=== PATIENT | male | born 1950 | race Caucasian/White ===

== ENCOUNTER 2016-05-31 06:58 | Day surgery (SDC) | payer OTHER ==
[~2016-05-31] VITALS: Ht 175.3 cm; Wt 79.5 kg
[2016-05-31] VITALS (9 sets, daily range): BP systolic 123–187; BP diastolic 64–97; PULSE 60–79; RESP 18–20; TEMP 98–98.2; O2SAT 91–97
[2016-05-31] MEDS ORDERED: LISI10TA3 PO (07:23)
[2016-05-31] MEDS ORDERED: METO25TA3 PO (07:23)
[2016-05-31] MEDS ORDERED: TRAZ100T4 PO (07:23)
[2016-05-31] MEDS ORDERED: LIDOCAINE 1%/EPINEPHrine 1:100,000 SOLN 20 ML VIAL ONE (07:25)
[2016-05-31] MEDS ORDERED: MIDAZOLAM HCL 5 MG/5 ML VIAL ONE (07:29)
[2016-05-31] MEDS ORDERED: fentaNYL CITRATE 250 MCG/5 ML AMP ONE (07:29)
[2016-05-31 07:51] LABS: AUTOMATED NEUTROPHIL # 3.3 TH/MM3 (1.8-7.7); BASOPHIL # 0.1 TH/MM3 (0-0.2); BASOPHIL % 0.9 % (0.0-2.0); EOSINOPHIL # 0.2 TH/MM3 (0-0.4); EOSINOPHIL % 3.9 % (0.0-4.0); HEMATOCRIT 43.9 % (39.0-51.0); HEMO FLAGS DIFF FINAL; LYMPH % 29.3 % (9.0-44.0); LYMPHOCYTE # 1.7 TH/MM3 (1.0-4.8); MEAN CELL VOLUME 92.9 FL (80.0-100.0); MEAN CORPUSCULAR HEMOGLOBIN 32.1 PG (27.0-34.0); MEAN CORPUSCULAR HGB CONC 34.5 % (32.0-36.0); MONO % 10.3 % (0.0-8.0); NEUT % 55.6 % (16.0-70.0); PLATELET COUNT 169 TH/MM3 (150-450); RED BLOOD COUNT 4.72 MIL/MM3 (4.50-5.90); RED CELL DISTRIBUTION WIDTH 12.8 % (11.6-17.2); WHITE BLOOD COUNT 5.9 TH/MM3 (4.0-11.0)
[2016-05-31 08:06] LABS: APTT (PATIENT) 27.6 SEC (24.3-30.1); INTERNATIONAL NORMALIZED RATIO 0.9 RATIO; PROTHROMBIN TIME - PATIENT 10.1 SEC (9.8-11.6)
[2016-05-31] MEDS ORDERED: THROMBIN (TOPICAL) 5,000 UNIT VIAL ONE (08:21)
[2016-05-31] MEDS ORDERED: SODIUM CHLOR 0.9% 1000 ML IV SCH (09:00)
[2016-05-31] MEDS ORDERED: GELATIN 12 MM/7 MM FOAM ONE (09:05)
[2016-05-31 09:33] LABS: AUTOMATED NEUTROPHIL # 2.7 TH/MM3 (1.8-7.7); BASOPHIL % 0.6 % (0.0-2.0); EOSINOPHIL # 0.1 TH/MM3 (0-0.4); EOSINOPHIL % 2.9 % (0.0-4.0); HEMATOCRIT 41.7 % (39.0-51.0); HEMO FLAGS DIFF FINAL; LYMPH % 31.9 % (9.0-44.0); LYMPHOCYTE # 1.6 TH/MM3 (1.0-4.8); MEAN CORPUSCULAR HEMOGLOBIN 32.9 PG (27.0-34.0); MEAN CORPUSCULAR HGB CONC 35.4 % (32.0-36.0); MONO % 9.8 % (0.0-8.0); NEUT % 54.8 % (16.0-70.0); PLATELET COUNT 130 TH/MM3 (150-450); RED BLOOD COUNT 4.49 MIL/MM3 (4.50-5.90); RED CELL DISTRIBUTION WIDTH 13.1 % (11.6-17.2)
--- NOTE | 2016-05-31 10:03 | RADRPT ---
EXAM DATE/TIME: 05/31/2016 08:22 [facility] COMPARISON: No previous studies available for comparison. INDICATIONS : Right renal mass. SEDATION TIME: 30 minutes BIOPSY SITE: Right renal MEDICATION(S): 1.) 2.5 mg midazolam (Versed) IV 2.) 100 mcg fentanyl (Sublimaze) SQL DEVELOPER(s): Minerva Arellano RN DEVICE(S): 1.) 18 gauge Bell blunt needle 2.) 20 gauge Temno core biopsy needle MEDICAL HISTORY : None. SURGICAL HISTORY : None. ENCOUNTER: Initial ACUITY: 1 day PAIN SCORE: 0/10 LOCATION: Right renal. A total of two core specimen(s) were obtained and sent to the laboratory for pathologic evaluation. PROCEDURE: 1. CT guided renal biopsy. 2. Conscious sedation with continuous EKG and oximetry monitoring. 3. EKG and oximetry remained stable throughout the procedure. Prior to the procedure informed consent was obtained. Any appropriate prior imaging studies were rev iewed. Using automated exposure control and adjustment of the mA and/or kV according to patient size, radiat ion dose was kept as low as reasonably achievable to obtain optimal diagnostic quality images. The site was prepped in a sterile fashion. Full sterile technique was used, including cap, mask, azeem rile gloves and gown and a large sterile sheet. Hand hygiene and 2% chlorhexidine and/or betadine/al cohol prep was utilized per protocol for cutaneous antisepsis. The skin and subcutaneous tissues wer e infiltrated with local anesthetic solution. Under CT guidance an 18 gauge blunt needle was placed down to the upper pole mass on the right. 3 co res were obtained. Tract and tumor was embolized with Gelfoam and thrombin. Follow-up CT scan reveals no hemorrhage. The patient tolerated the procedure well and there were no complications. The patient was returned to the Radiology Outpatient Unit in stable condition. CONCLUSION: Uncomplicated CT guided biopsy. Preliminary pathology interpretation is a cellular specimen. Jignesh Castillo MD FACR on May 31, 2016 at 10:01 Board Certified Radiologist. This report was verified electronically.
[2016-05-31 11:24] LABS: AUTOMATED NEUTROPHIL # 4.1 TH/MM3 (1.8-7.7); BASOPHIL % 0.5 % (0.0-2.0); EOSINOPHIL # 0.1 TH/MM3 (0-0.4); EOSINOPHIL % 1.8 % (0.0-4.0); HEMATOCRIT 41.6 % (39.0-51.0); HEMO FLAGS DIFF FINAL; LYMPH % 22.2 % (9.0-44.0); LYMPHOCYTE # 1.4 TH/MM3 (1.0-4.8); MEAN CELL VOLUME 93.1 FL (80.0-100.0); MEAN CORPUSCULAR HEMOGLOBIN 31.9 PG (27.0-34.0); MEAN CORPUSCULAR HGB CONC 34.2 % (32.0-36.0); MONO % 8.3 % (0.0-8.0); NEUT % 67.2 % (16.0-70.0); PLATELET COUNT 134 TH/MM3 (150-450); RED BLOOD COUNT 4.46 MIL/MM3 (4.50-5.90); RED CELL DISTRIBUTION WIDTH 13.1 % (11.6-17.2); WHITE BLOOD COUNT 6.2 TH/MM3 (4.0-11.0)
== END 2016-05-31 14:35 | disposition home or self-care (01) ==
LOC: HRAD 06:58 → HRIP 07:01 → HRAD 14:35
PROVIDERS: ATTEND Urology
DX: C64.9 Malignant neoplasm of unspecified kidney, except renal pelvis (principal)
CPT/HCPCS: 50200; 77012; 85025; 85610; 85730; 88305; 88333; J2250; J3010; J7030

== ENCOUNTER → 2016-08-30 | Outpatient (CLI) | payer OTHER ==
[~2016-08-30] MED LIST: LISI10TA3 PO; METO25TA3 PO; TRAZ100T4 PO
--- NOTE | 2016-09-01 09:11 | RADRPT ---
EXAM DATE/TIME: 08/30/2016 11:45 CONSULTATION: Patient has been kindly referred for evaluation of possible cryoablation of a right renal mass. CT ex amination from [facility] is reviewed, dated 04/09/2016. This demonstrates a 3.1 x 2.4 cm solid renal mass in the anterior mid pole of the right kidney without evidence for perinephric ext ension or renal vein invasion. No evidence for extrarenal metastatic disease. The R.E.N.A.L. nephrect madelyn designation is 7 (R1,E2, N2, L2). The anterior aspect of the mass abuts the liver capsule. Technically, although moderately challenging, this mass is amenable to thermal ablation. We will arrsri chavez for formal interventional radiology consult. Thank you for this consultation. David Sawyer MD on September 01, 2016 at 8:59 Board Certified Radiologist. This report was verified electronically.
== END ==
LOC: HRAD 10:55
PROVIDERS: ATTEND Urology
DX: N28.89 Other specified disorders of kidney and ureter (principal)

== ENCOUNTER 2016-09-22 12:53 | Day surgery (SDC) | payer OTHER ==
[2016-09-22 13:15] VITALS: BP 163/88; PULSE 73; RESP 20; TEMP 98.7; O2SAT 95
[2016-09-22] MEDS ORDERED: TRAZ100T6 PO (13:38)
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
== END 2016-09-22 13:40 | disposition home or self-care (01) ==
LOC: HROP 12:53 → HRIP 12:58 → HROP 13:40
PROVIDERS: ATTEND Urology
DX: C64.1 Malignant neoplasm of right kidney, except renal pelvis (principal); I10 Essential (primary) hypertension
CPT/HCPCS: 99213; G0463

== ENCOUNTER 2016-09-23 08:43 | Day surgery (SDC) | payer OTHER ==
[~2016-09-23] VITALS: Ht 175.3 cm; Wt 79.5 kg
[~2016-09-23 08:43] MED LIST changes: -TRAZ100T4 PO; +TRAZ100T6 PO
[2016-09-23 08:59] VITALS: BP 154/92; PULSE 71; RESP 20; TEMP 97.8; O2SAT 96
[2016-09-23] MEDS ORDERED: SODIUM CHLOR 0.9% 1000 ML INJ 1,000 ML IV SCH (09:00)
[2016-09-23] MEDS ORDERED: SODIUM CHLORID 0.9% 500 ML IV PRN (09:15)
[2016-09-23] MEDS ORDERED: LEVOFLOXACIN 500 MG PREMIX INJ 100 ML IV SCH (09:15)
[2016-09-23] MEDS ORDERED: INSULIN HUMAN REGULAR 1,000 UNITS/10 ML VIAL SQ PRN (09:15)
[2016-09-23] MEDS ORDERED: CHLORHEXIDINE GLUCONATE 2 % 1 PACK (2 CLOTHS) TOPICAL PRN (09:15)
[2016-09-23] MEDS ORDERED: POVIDONE IODINE 5% (ANTISEPSIS KIT) 4 APPLICATIONS EACH NARE PRN (09:15)
[2016-09-23] MEDS ORDERED: LACTATED RINGER'S 1000 ML IV PRN (09:15)
[2016-09-23] MEDS ORDERED: METOPROLOL TARTRATE 25 MG TAB PO PRN (09:15)
[2016-09-23 10:03] LABS: AUTOMATED NEUTROPHIL # 2.6 TH/MM3 (1.8-7.7); BASOPHIL % 0.5 % (0.0-2.0); EOSINOPHIL # 0.2 TH/MM3 (0-0.4); EOSINOPHIL % 3.1 % (0.0-4.0); HEMO FLAGS DIFF FINAL; LYMPH % 31.6 % (9.0-44.0); LYMPHOCYTE # 1.6 TH/MM3 (1.0-4.8); MEAN CELL VOLUME 92.5 FL (80.0-100.0); MEAN CORPUSCULAR HEMOGLOBIN 32.8 PG (27.0-34.0); MEAN CORPUSCULAR HGB CONC 35.4 % (32.0-36.0); MONO % 12.4 % (0.0-8.0); NEUT % 52.4 % (16.0-70.0); PLATELET COUNT 183 TH/MM3 (150-450); RED BLOOD COUNT 4.65 MIL/MM3 (4.50-5.90); RED CELL DISTRIBUTION WIDTH 12.4 % (11.6-17.2)
[2016-09-23 10:17] LABS: APTT (PATIENT) 27.5 SEC (24.3-30.1); INTERNATIONAL NORMALIZED RATIO 0.9 RATIO
[2016-09-23 10:29] LABS: BICARBONATE 27.6 MEQ/L (21.0-32.0)
[2016-09-23] MEDS ORDERED: LIDOCAINE 1%/EPINEPHrine 1:100,000 SOLN 20 ML VIAL ONE (11:12)
--- NOTE | 2016-09-23 12:38 | EKG ---
Date Performed: 09/23/2016 Time Performed: 09:16:54 PTAGE: 66 years EKG: Sinus rhythm NORMAL ECG NO PREVIOUS TRACING DOCTOR: Jeffrey Ochoa Interpretating Date/Time 09/23/2016 12:36:02
[2016-09-23] MEDS ORDERED: oxyCODONE/ACETAMINOPHEN 5 MG/325 MG TAB PO PRN (14:00)
--- NOTE | 2016-09-23 14:04 | PD.RAD ---
Post CT Procedure Prog Note Pre Procedure Diagnosis: (1) Renal mass Post Procedure Diagnosis: (1) Renal mass Procedure Date: Sep 23, 2016 Supervising Radiologist: David Sawyer Estimated blood loss: <5 ml Plan of Activity Patient to Unit: PACU Patient Condition: Good Additional Comments: good coverage with 3 probes. No hematoma or other complications See PACS Report for procedural detail/treatment David Sawyer MD Sep 23, 2016 14:04
[2016-09-23] MEDS ORDERED: *morphine SULFATE 8 MG/ML PERIprocedure ONLY ONE (14:45)
[2016-09-23 15:00] LABS: HEMATOCRIT 43.4 % (39.0-51.0); REVIEW FLAG FINAL
[2016-09-23 15:10] VITALS: TEMP 97.5
[2016-09-23 15:15] VITALS: BP 149/97; PULSE 78; RESP 18; O2SAT 97
[2016-09-23] MEDS ORDERED: IODIXANOL 320 MG/ML 10 ML VIAL (for Rad CT) IV ONE (15:37)
[2016-09-23 15:45] VITALS: BP 148/87; PULSE 66; RESP 16; O2SAT 94
--- NOTE | 2016-09-23 16:07 | RADRPT ---
EXAM DATE/TIME: 09/23/2016 11:55 INDICATIONS : Right renal mass 65-year-old male with history of 3 cm solid anterior right renal mass. Patient was s een and evaluated in [facility] radiology clinic and now presents for femoral ablation Anesthesia and p ain control was provided by the Anesthesia department. DEVICE(S): 1.) Cryoablation probe 1.7mm oblong MEDICAL HISTORY : Right renal mass SURGICAL HISTORY : None. ENCOUNTER: Initial ACUITY: 1 day PAIN SCORE: 0/10 LOCATION: Right Kidney PROCEDURE : 1. CT guided cryoablation. Under sterile conditions and using aseptic technique with CT guidance the mass was localized and sati sfactory approach was taken to access the lesion. Using automated exposure control and adjustment of the mA and/or kV according to patient size, radiation dose was kept as low as reasonably achievable to obtain optimal diagnostic quality images. DICOM format image data is available electronically for review and comparison. [facility] Cryoprobes were employed using percutaneous technique employing the prescribed probes. A freeze-thaw, freeze-thaw technique was employed and serial imaging demonstrated an ice ball encomp assing the entire lesion. Patient received 50 cc of Visipaque contrast to better delineate the renal collecting system and ureter. No evidence for ureteral or collecting system injury. Post procedure im ages demonstrate expected postoperative changes without evidence of hematoma. CONCLUSION: Uncomplicated cryoablation as above. David Sawyer MD on September 23, 2016 at 15:54 Board Certified Radiologist. This report was verified electronically.
[2016-09-23 16:15] VITALS: BP 148/79; PULSE 63; RESP 18; O2SAT 94
[2016-09-23 17:15] VITALS: BP 153/84; PULSE 68; RESP 18; O2SAT 93
[2016-09-23] MEDS ORDERED: DO NOT ADM ANY ANTICOAGULANT DRUGS PRN (17:15)
[2016-09-23 17:23] LABS: AUTOMATED NEUTROPHIL # 13.9 TH/MM3 (1.8-7.7); BASOPHIL % 0.3 % (0.0-2.0); EOSINOPHIL % 0.1 % (0.0-4.0); HEMATOCRIT 43.6 % (39.0-51.0); HEMO FLAGS DIFF FINAL; LYMPH % 4.2 % (9.0-44.0); LYMPHOCYTE # 0.6 TH/MM3 (1.0-4.8); MEAN CELL VOLUME 93.3 FL (80.0-100.0); MEAN CORPUSCULAR HGB CONC 34.3 % (32.0-36.0); MONO % 4.5 % (0.0-8.0); NEUT % 90.9 % (16.0-70.0); PLATELET COUNT 165 TH/MM3 (150-450); RED BLOOD COUNT 4.67 MIL/MM3 (4.50-5.90); RED CELL DISTRIBUTION WIDTH 12.9 % (11.6-17.2); WHITE BLOOD COUNT 15.3 TH/MM3 (4.0-11.0)
== END 2016-09-23 17:36 | disposition home or self-care (01) ==
LOC: HRAD 08:43 → HRIP 08:44 → HRAD 17:36
PROVIDERS: ATTEND Urology
DX: N28.89 Other specified disorders of kidney and ureter (principal); I10 Essential (primary) hypertension; F17.200 Nicotine dependence, unspecified, uncomplicated; Z85.528 Personal history of other malignant neoplasm of kidney
CPT/HCPCS: 50593; 77013; 80048; 85014; 85018; 85025; 85610; 85730; 93005; C2618; J2270; J7030; Q9967

== ENCOUNTER 2016-09-30 14:12 | Day surgery (SDC) | payer OTHER | END 2016-09-30 15:35 | disposition home or self-care (01) | LOC: HROP 14:12 → HRIP 14:14 → HROP 15:35 | PROVIDERS: ATTEND Radiology Diagnostic Radiology | DX: Z09 Encounter for follow-up examination after completed treatment for conditions other than malignant neoplasm (principal) ==